=== PATIENT | male | born 1990 ===

== ENCOUNTER 2018-09-21 23:16 | Emergency (ER) | payer OTHER ==
--- NOTE | 2018-09-21 23:43 | ED ---
HPI Chest Pain - HPI Summary HPI Summary: Patient is a 28 y/o M presenting to ED with complaints of episodes of chest pain over the past few days. He states that his episodes last minutes, with the longest episode of chest pain lasting around 30 minutes. Most recent episode was at 2100 today, 09/22/18. He reports no pain at present. Chest pain was lower sternal. He denies pain with palpation and movement. It is reported that there were T wave inversions noted on EKG done at patient's custodial facility, patient was subsequently brought to ED. Hx of asthma, patient has albuterol. He additionally states he has been experiencing a GRANADOS. Patient denies alc and substance usage, he is a former smoker. On triage, pain is denied. Nothing is noted to aggravate/alleviate Sx. Home medications and allergies are reviewed. - History of Current Complaint Chief Complaint: EDShortnessOfBreath Time Seen by Provider: 09/21/18 23:39 Hx Obtained From: Patient Onset/Duration: Started Days Ago, Still Present Timing: Intermittent, Lasting Minutes Current Severity: None Pain Intensity: 0 Pain Scale Used: 0-10 Numeric Chest Pain Location: Lower Sternal Aggravating Factor(s): Nothing Alleviating Factor(s): Nothing Associated Signs and Symptoms: Positive: Chest Pain, Headaches PMH/Surg Hx/FS Hx/Imm Hx Sensory History: Denies: Hx Legally Blind, Hx Deafness Opthamlomology History: Denies: Hx Legally Blind EENT History: Denies: Hx Deafness Infectious Disease History: No Infectious Disease History: Denies: Traveled Outside the [place] in Last 30 Days - Family History Known Family History: Positive: Cardiac Disease, Hypertension - Social History Alcohol Use: None Substance Use Type: Reports: None Smoking Status (MU): Never Smoked Tobacco Review of Systems Positive: Chest Pain Positive: Headache All Other Systems Reviewed And Are Negative: Yes Physical Exam - Summary Physical Exam Summary: Appearance: Well-appearing, Well-nourished, lying in bed comfortably Skin: Warm, dry, no obvious rash Eyes: sclera anicteric, no conjunctival pallor ENT: mucous membranes moist, pharynx appears normal Neck: Supple, nontender Respiratory: Clear to auscultation, no signs of respiratory distress Cardiovascular: Normal S1, S2. No murmurs. Normal distal pulses in tibial and radial bilaterally. Abdomen: Soft, nontender, normal active bowel sounds present Musculoskeletal: Normal, Strength/ROM Intact Neurological: A&Ox3, awake and alert, mentation is normal, speech is fluent and appropriate Psychiatric: affect is normal, does not appear anxious or depressed Triage Information Reviewed: Yes Vital Signs On Initial Exam: Initial Vitals Pulse Resp BP Pulse Ox 66 24 155/103 98 09/21/18 23:23 09/21/18 23:23 09/21/18 23:23 09/21/18 23:23 Vital Signs Reviewed: Yes Diagnostics - Vital Signs Vital Signs Temp Pulse Resp BP Pulse Ox 09/21/18 23:36 98.2 F 69 20 155/103 99 09/21/18 23:23 66 24 155/103 98 - Laboratory Result Diagrams: 09/22/18 00:17 09/22/18 00:17 Lab Statement: Any lab studies that have been ordered have been reviewed, and results considered in the medical decision making process. - Radiology CXR Radiology Interpretation Completed By: ED Physician Summary of Radiographic Findings: NAD, pending official report. - EKG 0126 Cardiac Rate: NL - rate of 67 BPM EKG Rhythm: Sinus Rhythm Summary of EKG Findings: NSR at 67 BPM, P waves, QRS complex, and T waves are within normal limits, T waves and intervals are normal, no ischemic changes. This is a normal EKG Chest Pain Course/Dx - Course Course Of Treatment: Patient is a 28 y/o M presenting to ED with complaints of episodes of chest pain over the past few days. He states that his episodes last minutes, with the longest episode of chest pain lasting around 30 minutes. Most recent episode was at 2100 today, 09/22/18. He reports no pain at present. Chest pain was lower sternal. He denies pain with palpation and movement. It is reported that there were T wave inversions noted on EKG done at patient's custodial facility, patient was subsequently brought to ED. Hx of asthma, patient has albuterol. He additionally states he has been experiencing a GRANADOS. Patient denies alc and substance usage, he is a former smoker. Physical exam is unremarkable. NSR at 67 BPM, P waves, QRS complex, and T waves are within normal limits, T waves and intervals are normal, no ischemic changes. This is a normal EKG. CXR was NAD. Labs showed Hgb 13.5, Hct 40. Trop was 0.01. Results discussed with patient, he will be discharged back to his custodial facility. - Diagnoses Provider Diagnoses: Chest wall pain Discharge - Sign-Out/Discharge Documenting (check all that apply): Patient Departure - discharge Patient Received Moderate/Deep Sedation with Procedure: No - Discharge Plan Condition: Stable Disposition: HOME Patient Education Materials: Chest Wall Pain (ED) Referrals: Nisa CASPER,Cedric Plunkett [Primary Care Provider] - If Needed Additional Instructions: This will probably come and go, wax and wane over a few days or a couple of weeks. The tests we ran did not show any worrisome issue with the heart or lungs. - Billing Disposition and Condition Condition: STABLE Disposition: Home - Attestation Statements Document Initiated by Cesia: Yes Documenting Parthibe: XAVI MOSES Provider For Whom Cesia is Documenting (Include Credential): JENY FAYE MD Scribe Attestation: XAVI Sanchez, scribed for JENY FAYE MD on 09/22/18 at 0152. Scribe Documentation Reviewed: Yes Provider Attestation: The documentation as recorded by the XAVI martinez accurately reflects the service I personally performed and the decisions made by me, JENY FAYE MD Status of Scribe Document: Viewed
[2018-09-22 00:25] LABS: ABS Basophils 0.1 10^3/ul (0-0.2); ABS Eosinophils 0.4 10^3/ul (0-0.6); ABS Lymphocytes 2.9 10^3/ul (1.0-4.8); ABS Monocytes 0.5 10^3/ul (0-0.8); Eosinophil % 5.5 %; Hematocrit 40 % (42-52); Hemoglobin 13.5 g/dL (14.0-18.0); Lymphocyte % 36.4 %; Mean Corpuscular HGB Conc 34 g/dL (31-36); Mean Corpuscular Hemoglobin 29 pg (27-31); Mean Corpuscular Volume 87 fL (80-94); Mean Platelet Volume 8.9 fL (7.4-10.4); Platelet Count 256 10^3/uL (150-450); Red Blood Count 4.64 10^6 /uL (4.18-5.48); Red Cell Distribution Width 14 % (10-15); White Blood Count 7.9 10^3/uL (3.5-10.8)
[2018-09-22 00:45] LABS: Albumin 3.7 g/dL (3.2-5.2); Albumin/Globulin Ratio 1.3 (1-3); BUN/Creatinine Ratio 11.7 (8-20); Calcium 9.1 mg/dL (8.6-10.3); Globulin 2.8 g/dL (2-4); Total Bilirubin 0.3 mg/dL (0.2-1.0); Total Protein 6.5 g/dL (6.4-8.9)
[2018-09-22 00:47] LABS: Troponin I 0.01 ng/mL (<0.04)
[2018-09-22 00:58] LABS: Potassium 4.2 mmol/L (3.5-5.0)
[2018-09-22 01:57] VITALS: BP 151/104
== END 2018-09-22 01:57 | disposition home or self-care (01) ==
LOC: ED 23:16
DX: R07.89 Other chest pain (principal); R51 Headache
CPT/HCPCS: 36415; 71046; 80053; 84484; 85025; 93005; 99283